=== PATIENT | male | born 2000 ===

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

== ENCOUNTER 2021-09-13 17:06 | Emergency (ER) | payer OTHER, SELFPAY ==
[2021-09-13 17:14] VITALS: BP 133/77; PULSE 76; RESP 18; TEMP 35.8; O2SAT 95; BMI 20.3
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
[2021-09-13 20:09] LABS: Syphilis Screen Nonreactive (Nonreactive)
[2021-09-14 10:07] LABS: CT PCR NOT DETECTED (Not Detect.); NG PCR NOT DETECTED (Not Detect.)
[2021-09-24 12:22] LABS: HSV 1 IgM IFA Negative (Negative); HSV 2 IgM IFA Negative (Negative)
== END 2021-09-13 19:43 | disposition home or self-care (01) ==
PROVIDERS: Emergency Provider Emergency Medicine; PCP Pediatrics
DX: Z20.2 Contact with and (suspected) exposure to infections with a predominantly sexual mode of transmission (principal)
CPT/HCPCS: 36415; 86695; 86696; 86780; 87491; 87591; 99282; 99283

== ENCOUNTER 2021-11-27 21:26 | Emergency (ER) | payer OTHER, SELFPAY ==
--- NOTE | ~2021-11-27 | XR_ITS ---
EXAMINATION: XR CHEST CLINICAL INFORMATION: Cough, malaise. COMPARISON: None TECHNIQUE: Frontal view of the chest was obtained. FINDINGS: The lungs are clear. The heart and mediastinal structures are unremarkable. Mild thoracolumbar dextroscoliosis. XR/XR chest 1V IMPRESSION: No acute cardiopulmonary process.
[2021-11-27 21:37] VITALS: BP 140/90; BP 141/86; PULSE 80; PULSE 96; RESP 18; TEMP 37.7; O2SAT 97; O2SAT 99; BMI 20.9
[2021-11-27 22:27] LABS: Influenza A PCR NEGATIVE (Negative); Influenza B PCR NEGATIVE (Negative); Resp Syncy Virus RNA Qual PCR NEGATIVE (Negative); SARS COV2 PCR INHOUSE POSITIVE (Negative)
[2021-11-27] MEDS: Ibuprofen 600 MG TABLET PO (23:00)
[2021-11-27] MEDS: Acetaminophen 325 MG TABLET 650 MG PO (23:00)
== END 2021-11-27 23:19 | disposition left against medical advice (07) ==
PROVIDERS: Emergency Provider Emergency Medicine
DX: R06.02 Shortness of breath (principal); J02.9 Acute pharyngitis, unspecified; Z20.822 Contact with and (suspected) exposure to COVID-19
CPT/HCPCS: 0241U; 71045; 99282; 99283

== ENCOUNTER 2023-09-06 23:01 | Emergency (ER) | payer OTHER, SELFPAY ==
[2023-09-06 23:15] VITALS: BP 147/90; PULSE 69; RESP 18; TEMP 36.6; O2SAT 97; BMI 22.3
[2023-09-06 23:32] LABS: MANUAL DIFF FLAG NO
[2023-09-06 23:33] LABS: Basophils Percent Auto 0.4 % (0-2); Eosinophils Percent Auto 0.1 % (0-4); Hematocrit 42.2 % (42.0-52.0); Hemoglobin 14.9 g/dl (14.0-18.0); Imm Gran Abs Auto 0.03 X10*3/uL (0.00-0.03); Imm Gran Pct Auto 0.3 % (0.0-0.4); Lymphocytes Absolute Auto 1.6 X10*3/uL (1.2-4.9); Lymphocytes Percent Auto 16.9 % (20-40); Mean Corpuscular HGB Conc 35.3 g/dl (31.0-36.0); Mean Corpuscular Hemoglobin 29.5 pg (27.0-33.0); Mean Corpuscular Volume 83.6 fL (80.0-98.0); Mean Platelet Volume 10.8 fL (9.4-12.4); Monocytes Absolute Auto 0.9 X10*3/uL (0.1-1.2); Monocytes Percent Auto 9.5 % (2-11); Neutrophils Absolute Auto 7.1 x10*3/uL (2.0-8.3); Neutrophils Percent Auto 72.8 % (45-73); Platelet Count 308 X10*3/uL (160-400); Red Blood Count 5.05 X10*6/uL (4.60-5.80); Red Cell Distribution Width 12.6 % (11.0-16.0); White Blood Count 9.7 X10*3/uL (4.8-10.8)
[2023-09-06 23:48] LABS: Alanine Aminotransferase 31 U/L (0-40); Albumin Level 5.1 g/dL (3.5-5.0); Alkaline Phosphatase 96 U/L (39-117); Anion Gap 14 (12-20); Aspartate Amino Transferase 23 U/L (5-37); Bilirubin Direct 0.2 mg/dL (0.0-0.5); Blood Urea Nitrogen 12 mg/dL (9-16); Calcium 9.9 mg/dL (8.4-10.2); Carbon Dioxide 26 mmol/L (22-29); Chloride 103 mmol/L (96-108); Creatinine Clr Calc Pharmacy 123.6; Estimated Glomerular Filt Rate > 60; Glucose Random 107 mg/dL (60-115); Lipase 20 U/L (8-78); Sodium 139 mmol/L (135-145); Total Protein 8.6 g/dL (6.5-8.0)
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
--- NOTE | 2023-09-07 01:27 | ED.ABDPAIN ---
HPI - Abdominal Pain General Chief Complaint: Abdominal Pain Stated Complaint: sharp abd pain and vomiting Time Seen by Provider: 09/07/23 01:20 Source: patient Mode of arrival: ambulatory Limitations: no limitations History of Present Illness ED Provider: Dr. Mackenzie Bentley HPI narrative: Patient comes to the emergency room complaining of chronic abdominal pain. Patient states that for several months he has experienced abdominal cramping intermittent, patient states that he has been having some diarrhea intermittently as well, no constipation. Patient denies fever chills, no blood in the stool. Earlier today, patient had 2 episodes of vomiting Related Data Previous Rx's ?Medication ?Instructions ?Recorded ondansetron HCl 4 mg tablet 4 mg PO Q8H PRN nausea and 10/07/20 (Zofran) vomiting #10 tabs doxycycline hyclate 150 mg tablet 100 mg (0.6667 x 150 mg) PO DAILY 09/13/21 #14 tabs hyoscyamine sulfate 0.125 mg tablet 0.125 mg PO QID PRN dyspepsia #14 09/07/23 tabs loperamide 2 mg capsule 2 mg PO Q4H PRN loose stool #14 09/07/23 caps ondansetron HCl 4 mg tablet 4 mg PO Q6H PRN nausea and 09/07/23 vomiting #10 tabs Allergies Allergy/AdvReac Type Severity Reaction Status Date / Time No Known Allergies Allergy Verified 09/06/23 23:17 Review of Systems Review of Systems Constitutional : No Weight loss, No Fever, No Chills, No Night Sweats, No Fatigue, No Malaise ENT/Mouth : No Hearing loss, No Ear Pain, No Nasal Congestion, No Sinus Pain, No Hoarseness, No sore throat, No Rhinorrhea, No Swallowing Difficulty Eyes: No Eye Pain, No Swelling, No Redness, No Foreign Body, No Discharge, No Vision Changes Cardiovascular : No Chest Pain, No SOB, No Dyspnea on Exertion, No Orthopnea, No Edema, No Palpitations Respiratory : No Cough, No Sputum, No Wheezing, No Smoke Exposure, No Dyspnea Gastrointestinal complaining of nausea and vomiting earlier today which self-resolved, complaining of couple episodes of diarrhea, and left lower quadrant Genitourinary : no irregular bleeding, No Dysuria, No Urinary Frequency, No Hematuria, No Urinary Incontinence, No Urgency, No Flank Pain, No Urinary Flow Changes, No Hesitancy Musculoskeletal : No joint pain, No Myalgias, No Joint Swelling Skin : No Skin Lesions, No rash Neuro : No Weakness, No Numbness, No Paresthesias, No Loss of Consciousness, No Dizziness, No Headache Psych : No Anxiety/Panic, No Depression, No SI/HI/AH/VH, No Social Issues, Heme/Lymph: No Bruising, No Bleeding,No Lymphadenopathy Endocrine : No Polyuria, No Polydipsia, No Temperature Intolerance [facility] Past Medical History Medical History No known health problems Social History Social History (System 11/28/22 @ 14:51 by Noni Kirkpatrick) Advance Directives: No Advance Directives Information Provided: No Do you have a plan to hurt others: No Plan Physical Exam ED Vital Signs: Vital Signs - 24 hr 09/06/23 23:15 Temperature 98 F Pulse Rate 69 Respiratory Rate 18 Blood Pressure 147/90 H Pulse Oximetry 97 Oxygen Delivery Method Room Air BMI result Body Mass Index 22.3 Const Other: Appearance: Alert. Oriented X3. No acute distress. Eyes: Pupils equal, round and reactive to light. ENT: Pharynx normal. Neck: Normal inspection. Neck supple. No lymph nodes noted. No crepitus CVS: Normal heart rate and rhythm. Pulses normal. Normal S1 and S2 Respiratory: No respiratory distress. Breath sounds normal. No Wheezing. No rales Abdomen: Soft and nontender. No rigidity. No distention. Skin: Skin warm and dry. Normal skin color. Normal skin turgor. Extremities: No lower extremity edema. No Lacerations. No Rash Neuro: Oriented X 3. No motor deficit. No sensory deficit. Moving all extremities. No slurred speech. CN 2 through 12 grossly intact Psych: calm, cooperative, normal affect Medical Decision Making Medical Decision Making MDM Narrative: -my interpretation of labs, normal hematology, normal chemistry, normal lipase and LFT -physical exam was unremarkable, no rebound no tenderness. -here in the emergency room patient has not vomited or had any diarrhea. -I discussed with the patient that given the length of his intermittent symptoms, he would benefit from being referred to Gastroenterology by his PCP. Patient states that he is waiting to be seen by a new PCP. -at this time, patient's vitals are normal, patient has no abdominal pain. Patient ready for discharge. - Differential Diagnosis Differential Diagnoses: The differential diagnosis associated with the presentation includes (IBS, Diverticulosis without diverticulitis, dyspepsia, viral syndrome) Lab Data MDM Lab Attestation statement: I reviewed the patient's lab results. 09/06/23 23:28 09/06/23 23:28 Labs: Lab Results 09/06/23 Range/Units 23:28 WBC 9.7 (4.8-10.8) X10*3/uL RBC 5.05 (4.60-5.80) X10*6/uL Hgb 14.9 (14.0-18.0) g/dl Hct 42.2 (42.0-52.0) % MCV 83.6 (80.0-98.0) fL MCH 29.5 (27.0-33.0) pg MCHC 35.3 (31.0-36.0) g/dl RDW 12.6 (11.0-16.0) % Plt Count 308 (160-400) X10*3/uL MPV 10.8 (9.4-12.4) fL Immature Gran % (Auto) 0.3 (0.0-0.4) % Neut % (Auto) 72.8 (45-73) % Lymph % (Auto) 16.9 L (20-40) % [place] % (Auto) 9.5 (2-11) % Eos % (Auto) 0.1 (0-4) % Baso % (Auto) 0.4 (0-2) % Lymph # (Auto) 1.6 (1.2-4.9) X10*3/uL [place] # (Auto) 0.9 (0.1-1.2) X10*3/uL Eos # (Auto) 0.0 (0.0-0.4) X10*3/uL Baso # (Auto) 0.0 (0.0-0.2) X10*3/uL Abs Immat Gran (auto) 0.03 (0.00-0.03) X10*3/uL Absolute Neuts (auto) 7.1 (2.0-8.3) x10*3/uL Absolute Nucleated RBC 0.000 (0.0-0.012) X10*3/uL Nucleated RBC % (auto) 0.0 (0.0-0.2) /100WBC Sodium 139 (135-145) mmol/L Potassium 4.0 (3.3-5.1) mmol/L Chloride 103 (96-108) mmol/L Carbon Dioxide 26 (22-29) mmol/L Anion Gap 14 (12-20) BUN 12 (9-16) mg/dL Creatinine 0.97 (0.5-1.4) mg/dL Estim Creat Clear Calc 123.6 Estimated GFR > 60 Random Glucose 107 (60-115) mg/dL Calcium 9.9 (8.4-10.2) mg/dL Total Bilirubin 1.0 (0.0-1.0) mg/dL Direct Bilirubin 0.2 (0.0-0.5) mg/dL AST 23 (5-37) U/L ALT 31 (0-40) U/L Alkaline Phosphatase 96 (39-117) U/L Total Protein 8.6 H (6.5-8.0) g/dL Albumin 5.1 H (3.5-5.0) g/dL Lipase 20 (8-78) U/L Discharge Plan Discharge Clinical Impression: Abdominal pain Patient Disposition: Home, Self-Care Instructions: Abdominal Pain (ED) Additional Instructions: Please follow-up with your primary care physician tomorrow. If you have any worsening or new symptoms, please return to the emergency room or call 911 Prescriptions: New hyoscyamine sulfate 0.125 mg tablet 0.125 mg PO QID PRN (Reason: dyspepsia) Qty: 14 0RF ondansetron HCl 4 mg tablet 4 mg PO Q6H PRN (Reason: nausea and vomiting) Qty: 10 0RF loperamide 2 mg capsule 2 mg PO Q4H PRN (Reason: loose stool) Qty: 14 0RF Rx Instructions: administer after each loose stool until symptoms controlled; do not exceed 8 mg per 24 hrs No Action ondansetron HCl [Zofran] 4 mg tablet 4 mg PO Q8H PRN (Reason: nausea and vomiting) Qty: 10 0RF doxycycline hyclate 150 mg tablet 100 mg PO DAILY Qty: 14 0RF Referrals: Wilmer Monsalve MD [Physician] - 09/08/23 Print Language: Serbian
[2023-09-07 01:30] VITALS: BP 133/80; PULSE 70; RESP 16; TEMP 36.6; O2SAT 98
[2023-09-07] MEDS: Acetaminophen 325 MG TABLET 650 MG PO (01:50)
[2023-09-07 01:55] VITALS: BP 133/80; PULSE 70; RESP 16; TEMP 36.6; O2SAT 98
== END 2023-09-07 02:00 | disposition home or self-care (01) ==
PROVIDERS: Emergency Provider Emergency Medicine
DX: R10.9 Unspecified abdominal pain (principal); R25.2 Cramp and spasm; Z79.899 Other long term (current) drug therapy
CPT/HCPCS: 36415; 80048; 80076; 83690; 85025; 99283; 99284

== ENCOUNTER 2023-11-30 14:03 | Outpatient (AMB) | payer OTHER, SELFPAY ==
--- NOTE | 2023-11-30 14:18 | A.OFFPC_ITS ---
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 He transferred from [facility]. Records transfer pending. The patient would like to discuss stomach symptoms that started a year ago or longer. Patient endorses episodes of abdominal pain that come and go. He has episodes every 2-3 weeks. He is not sure how long they last, but usually it is at least 24 hours. He says it is not worse after eating or after eating specific foods. Sometimes he is nauseous or vomits with the pain. Denies diarrhea and blood in his stools. Denies weight loss. No fevers or chills. No history of abdominal surgeries. Sometimes the pain is so bad he has to hold his stomach. He describes it as severe. It is aching and throbbing. He could not localize pain. Tylenol might help sometimes. Drinks socially on the weekends with friends. Does not see a correlation between alcohol consumption and onset of symptoms. Denies family history or Celiac, Crohns, UC, GI cancers. His father has some type of gastro issue for which he sees Dr. Mar, and the patient would like a referral to him. He went to the [place] in September for vacation. 3 days before leaving he developed nausea, vomiting, diarrhea and stomach pain. He could not really eat. He went to the emergency room and missed his flight. They prescribed medication, but he could not afford it. He has been to the emergency room for this pain in the past, but he has not had imaging. The patient also says he has trouble sleeping. Upon further discussion patient says that he does not try to go to sleep and stays on his phone all night. When this happens he tries to stay up throughout the day and then ends up falling asleep in the late afternoon. He also drinks caffeinated soda and says he has been eating a lot of candy throughout the day. He does not drink coffee. ROS: Constitutional: No unexplained weight loss, fever, chills or night sweats. Respiratory: No shortness of breath, cough or sputum production. Cardiovascular: No chest pain Gastrointestinal: see HPI. Genitourinary: No dysuria, hematuria, urinary frequency. Hematologic/Lymphatics: No bleeding or bruising. Skin: No rash or itching. Endocrine: No cold or heat intolerance. No polyuria or polydipsia. Psychiatric: Denies depression and anxiety. Physical exam: Constitutional: Alert, in no distress. Neck: Supple, Full range of motion. No lymphadenopathy. No palpable thyroid masses. Respiratory: Clear to auscultation. Cardiovascular: S1 S2 regular. No murmurs. Gastrointestinal: Abdomen soft, non-tender, non-distended. Normal bowel sounds. No palpable masses. No organomegaly. Skin: No rashes Extremities: Warm and well perfused. No clubbing, cyanosis or edema. Psychiatric: Normal mood and affect [facility] Medical History (Updated 11/30/23 @ 15:32 by JIMMIE Barrett) Sleep initiation dysfunction Nausea & vomiting Chronic abdominal pain No known health problems Social History (Updated 11/30/23 @ 14:22 by Nanette Betancourt [facility]) Housing: Apartment Alcohol intake: never Patient Tobacco Use Status: Never used Tobacco e-Cigarette/Vaping Use: Never Used Second Hand Smoke Exposure: No Substance Use Type: Marijuana service: No Current occupational status: unemployed Current occupational exposures/hazards: No Cognitive needs: No Hearing needs: No Vision needs: No Questionnaire PHQ-9 Over the last 2 weeks, how often have you been bothered by any of the following problems? 1. Little interest or pleasure in doing things: several days 2. Feeling down, depressed, or hopeless: several days 3. Trouble falling or staying asleep, or sleeping too much: nearly every day 4. Feeling tired or having little energy: nearly every day 5. Poor appetite or overeating: nearly every day 6. Feeling bad about yourself - or that you are a failure or have let yourself or your family down: not at all 7. Trouble concentrating on things, such as reading the newspaper or watching television: not at all 8. Moving or speaking so slowly that other people could have noticed. Or the opposite - being so fidgety or restless that you have been moving around a lot more than usual: not at all 9. Thoughts that you would be better off or of hurting yourself in some way: not at all Total score: 11 Depression Screening Interpretation: Positive Depression Screening Done: Yes 27520 - PHQ-9 Billing: Yes Source: Developed by Drs. Angel Smith, Roseanna Mueller, Gilberto Soliz and colleagues, with an educational celia from [employer]. Thrive Questionnaire Date Thrive assessed: 11/30/23 I am a: Patient What is your living situation today?: I have a steady place to live Within the past 12 months, did the food you bought not last and you didn't have the money to get more?: Never true Within the past 12 months, did you worry whether your food would run out before you got money to buy more?: Never true Do you have trouble paying for medicines?: No Do you have trouble getting transportation to medical appointments?: No Do you have trouble paying your heating and electricity bill?: No Do you have trouble taking care of your child, family member or friend?: No Do you have trouble with day-to-day activities such as bathing, preparing meals, shopping, managing finances, etc.?: No Are you currently unemployed and looking for a job?: No Are you interested in more education?: No Please select the resources that you would like help with: None Currently or been in a relationship where the following occur: No concerns reported THRIVE Score: 0 AUDIT C Alcohol Use Questionnaire (AUDIT-C) 1. How often do you have a drink containing alcohol?: 2-3 times a week 2. How many drinks containing alcohol do you have on a typical day when you are drinking?: 1 or 2 3. How often do you have six or more drinks on one occasion?: Never Total Score: 3 JOSELITO-7 AMB Questionnaire JOSELITO-7 Date JOSELITO - 7 assessed: 11/30/23 Feeling nervous, anxious, or on edge: 1 = Several days Not being able to stop or control worryin = Several days Worrying too much about different things: 2 = More than half the days Trouble relaxin = Several days Being so restless that it is hard to sit still: 1 = Several days Becoming easily annoyed or irritable: 3 = Nearly every day Feeling afraid as if something awful might happen: 0 = Not at all Total JOSELITO-7 score (0-4 normal; 5-9 mild; 10-14 moderate; 15-21 severe): 9 Source: Developed by Drs. Angel Smith, Roseanna Mueller, Gilberto Soliz and colleagues, with an educational celia from [employer]. JOSELITO-7 Assessment Billing JOSELITO-7 Assessment Tool: JOSELITO-7 Assessment 75098 Physical exam (Primary Care) Vital Signs: Last Vital Signs Temp 98.1 F 11/30/23 14:25 Pulse 71 11/30/23 14:25 Resp 12 11/30/23 14:25 BP 100/60 11/30/23 14:25 Pulse Ox 97 11/30/23 14:25 Oxygen Delivery Method Room Air 11/30/23 14:25 BMI result Body Mass Index 24.7 Tobacco/Smoking Status: Tobacco use Status Tobacco use date assessed 11/30/23 11/30/23 14:28 Patient Tobacco Use Status Never used Tobacco 11/30/23 14:28 e-Cigarette/Vaping Use Never Used 11/30/23 14:28 PHQ-9: PHQ-9 Score PHQ-9: Total score 11 11/30/23 14:28 Depression Screening Interpretation: Positive Thrive Assessment: Date of Thrive Assessment Date Thrive assessed 11/30/23 11/30/23 14:28 Currently or been in a relationship where the following occur: No concerns reported Coding Level of Care Code New Pt Level 4 (02965) Complex EM visit Add On G2211 Diagnoses Chronic abdominal pain R10.9; G89.29 Nausea and vomiting, unspecified vomiting type R11.2 Vomiting type: unspecified Sleep initiation dysfunction G47.00 Additional Codes JOSELITO-7 Assessment Billing - JOSELITO-7 Assessment Tool: JOSELITO-7 Assessment 52220 ([id number]) Assessment & Plan Assessment & Plan (1) Chronic abdominal pain: Code(s): R10.9 - Unspecified abdominal pain; G89.29 - Other chronic pain Category: Medical Plan: I ordered labs including screenings for H pylori and celiac disease. Check metabolic function, CBC for anemia, sed rate. Abdominal ultrasound ordered. Refer to Gastroenterology. Warning signs warranting ER evaluation reviewed. (2) Nausea & vomiting: Code(s): R11.2 - Nausea with vomiting, unspecified Category: Medical Qualifiers: Vomiting type: unspecified Qualified Code(s): R11.2 - Nausea with vomiting, unspecified (3) Sleep initiation dysfunction: Code(s): G47.00 - Insomnia, unspecified Category: Medical Plan: I reviewed sleep hygiene in detail with the patient. He is going to stopped drinking caffeine in the afternoon, start physical exercise during the day like walking his dog, and pick a reasonable bedtime and stay consistent with it and avoid any type of screen use around bedtime. Advised him to pick an activity like reading or listening to quiet music before anticipated bedtime. If he is unable to fall asleep after half an hour he can read again for 15 minutes and attempt to fall asleep again. He should avoid using his phone at night. Advised patient he can try melatonin 3-10 mg nightly initially to see if this helps. Plan Schedule physical exam. Sign release for medical records. Orders: Orders Complete Blood Count Auto Diff Today G89.29 - Other chronic pain, R10.9 - Unspecified abdominal pain, R11.2 - Nausea with vomiting, unspecified Comprehensive Met. Panel Today G89.29 - Other chronic pain, R10.9 - Unspecified abdominal pain, R11.2 - Nausea with vomiting, unspecified TSH reflex Free T4 Today G89.29 - Other chronic pain, R10.9 - Unspecified abdominal pain, R11.2 - Nausea with vomiting, unspecified Amylase Today G89.29 - Other chronic pain, R10.9 - Unspecified abdominal pain, R11.2 - Nausea with vomiting, unspecified Erythrocyte Sedimentation Rate Today G89.29 - Other chronic pain, R10.9 - Unspecified abdominal pain, R11.2 - Nausea with vomiting, unspecified Immunoglobulin A Today G89.29 - Other chronic pain, R10.9 - Unspecified abdominal pain, R11.2 - Nausea with vomiting, unspecified Transglutaminase Ab IgG Today G89. - Other chronic pain, R10.9 - Unspecified abdominal pain, R11.2 - Nausea with vomiting, unspecified US abdomen complete Today G89.29 - Other chronic pain, R10.9 - Unspecified abdominal pain, R11.2 - Nausea with vomiting, unspecified H pylori Ag Stool Today G89. - Other chronic pain, R10.9 - Unspecified abdominal pain, R11.2 - Nausea with vomiting, unspecified Lipase Today G89. - Other chronic pain, R10.9 - Unspecified abdominal pain, R11.2 - Nausea with vomiting, unspecified Endomysial IgA rflx Titer Today G89. - Other chronic pain, R10.9 - Unspecified abdominal pain, R11.2 - Nausea with vomiting, unspecified Referrals Gastroenterology Referral G. - Other chronic pain, R10.9 - Unspecified abdominal pain, R11.2 - Nausea with vomiting, unspecified Medications: Discontinued ondansetron HCl (Zofran) Discontinued Reason: Patient Completed Course 4 mg PO Q8H PRN 10 tabs 0RF nausea and vomiting doxycycline hyclate Discontinued Reason: Patient Completed Course 100 mg (0.6667 x 150 mg) PO DAILY 14 tabs 0RF loperamide administer after each loose stool until symptoms controlled; do not exceed 8 mg per 24 hrs Discontinued Reason: Patient Completed Course 2 mg PO Q4H PRN 14 caps 0RF loose stool hyoscyamine sulfate Discontinued Reason: Patient Completed Course 0.125 mg PO QID PRN 14 tabs 0RF dyspepsia ondansetron HCl Discontinued Reason: Patient Completed Course 4 mg PO Q6H PRN 10 tabs 0RF nausea and vomiting
[2023-11-30 14:25] VITALS: BP 100/60; PULSE 71; RESP 12; TEMP 36.7; O2SAT 97; BMI 24.7
== END 2023-11-30 15:09 | disposition home or self-care (01) ==
PROVIDERS: Visit Provider Physician Assistant Medical
DX: R10.9 Unspecified abdominal pain (principal); G89.29 Other chronic pain; R11.2 Nausea with vomiting, unspecified; G47.00 Insomnia, unspecified

== ENCOUNTER → 2023-11-30 14:03 | Outpatient (BNVA) | payer SELFPAY | PROVIDERS: Visit Provider Physician Assistant Medical ==

== ENCOUNTER 2023-11-30 15:27 | Outpatient (REF) | payer SELFPAY ==
[2023-11-30 18:00] LABS: MANUAL DIFF FLAG NO
[2023-11-30 18:21] LABS: Basophils Absolute Auto 0.1 X10*3/uL (0.0-0.2); Eosinophils Absolute Auto 0.2 X10*3/uL (0.0-0.4); Eosinophils Percent Auto 3.4 % (0-4); Hematocrit 38.5 % (42.0-52.0); Hemoglobin 12.9 g/dl (14.0-18.0); Imm Gran Abs Auto 0.03 X10*3/uL (0.00-0.03); Imm Gran Pct Auto 0.4 % (0.0-0.4); Lymphocytes Absolute Auto 2.6 X10*3/uL (1.2-4.9); Lymphocytes Percent Auto 37.6 % (20-40); Mean Corpuscular HGB Conc 33.5 g/dl (31.0-36.0); Mean Corpuscular Hemoglobin 29.5 pg (27.0-33.0); Mean Corpuscular Volume 88.1 fL (80.0-98.0); Mean Platelet Volume 11.7 fL (9.4-12.4); Monocytes Absolute Auto 0.8 X10*3/uL (0.1-1.2); Monocytes Percent Auto 11.7 % (2-11); Neutrophils Absolute Auto 3.1 x10*3/uL (2.0-8.3); Neutrophils Percent Auto 45.9 % (45-73); Platelet Count 266 X10*3/uL (160-400); Red Blood Count 4.37 X10*6/uL (4.60-5.80); Red Cell Distribution Width 12.7 % (11.0-16.0); White Blood Count 6.8 X10*3/uL (4.8-10.8)
[2023-11-30 18:56] LABS: Alanine Aminotransferase 11 U/L (0-40); Albumin Level 4.5 g/dL (3.5-5.0); Alkaline Phosphatase 76 U/L (39-117); Amylase 104 U/L (28-100); Anion Gap 13 (12-20); Aspartate Amino Transferase 14 U/L (5-37); Bilirubin Total 0.3 mg/dL (0.0-1.0); Blood Urea Nitrogen 16 mg/dL (9-16); Calcium 9.1 mg/dL (8.4-10.2); Carbon Dioxide 28 mmol/L (22-29); Chloride 103 mmol/L (96-108); Estimated Glomerular Filt Rate > 60; Glucose Random 99 mg/dL (60-115); Lipase 110 U/L (8-78); Potassium 3.8 mmol/L (3.3-5.1); Sodium 140 mmol/L (135-145); Total Protein 7.4 g/dL (6.5-8.0)
[2023-11-30 19:11] LABS: TSH reflex Free T4 2.04 uIU/mL (0.32-4.0)
[2023-11-30 20:18] LABS: Erythrocyte Sedimentation Rate 4 MM/HR (0-15)
[2023-12-01 09:04] LABS: Immunoglobulin A 186 mg/dL (47-310)
[2023-12-03 14:08] LABS: Transglutaminase Ab IgG <1.0 U/mL
[2023-12-03 22:34] LABS: Endomysial IgA Antibody Negative (Negative)
== END 2023-11-30 15:28 | disposition home or self-care (01) ==
LOC: HO.WFDLDS 15:27
PROVIDERS: Visit Provider Physician Assistant Medical
DX: R10.9 Unspecified abdominal pain (principal); G89.29 Other chronic pain; R11.2 Nausea with vomiting, unspecified; G47.00 Insomnia, unspecified
CPT/HCPCS: 36415; 80053; 82150; 82784; 83690; 84443; 85025; 85652; 86231; 86364; 96127; 99202

== ENCOUNTER 2024-01-22 10:55 | Emergency (ER) | payer OTHER, SELFPAY ==
--- NOTE | 2024-01-22 12:35 | ED_ITS ---
HPI - Nausea/Vomiting/Diarrhea General Chief complaint: Abdominal Pain Stated complaint: Stomach Pain Vomiting Related Data Previous Rx's ?Medication ?Instructions ?Recorded barium sulfate 2.1 % (w/v), 2.0 % See Rx Instructions .Route 12/04/23 (w/w) oral suspension .COMPLEX #900 mL omeprazole 20 mg capsule,delayed 20 mg PO DAILY #90 caps 12/10/23 release Allergies Allergy/AdvReac Type Severity Reaction Status Date / Time No Known Allergies Allergy Verified 01/22/24 12:37 [facility] Past Medical History Medical History (Updated 01/27/24 @ 12:08 by JIMMIE Barbosa) Elevated pancreatic enzyme Mild anemia Sleep initiation dysfunction Nausea & vomiting Chronic abdominal pain No known health problems Social History Social History (Updated 11/30/23 @ 14:22 by Nanette Betancourt [facility]) Housing: Apartment Alcohol intake: never Patient Tobacco Use Status: Never used Tobacco e-Cigarette/Vaping Use: Never Used Second Hand Smoke Exposure: No Substance Use Type: Marijuana Advance Directives: No Advance Directives Information Provided: No Do you have a plan to hurt others: No Plan service: No Current occupational status: unemployed Current occupational exposures/hazards: No Cognitive needs: No Hearing needs: No Vision needs: No Physical Exam 2 Vital Signs: Vital Signs: Last Vital Signs Temp 99.6 F 01/22/24 12:36 Pulse 76 01/22/24 12:36 Resp 16 01/22/24 12:36 BP 138/95 H 01/22/24 12:36 Pulse Ox 99 01/22/24 12:36 O2 Del Method Room Air 01/22/24 12:36 BMI result Body Mass Index 21.1 Course Course Course Narrative: This is an RME: Additional HPI, ROS, PE not included below will be deferred to primary provider. RME assessment and note performed by: Iwona Quiroga PA-C This is a 61-qhtg-sba-male who presents to the ER with complaints of nausea, vomiting and diarrhea x 3-4 days. smokes marijuana. Reports generalized abdominal pain. Pt was called with no responded x 2, was in and out of the waiting room. Advised that he needs to stay in the [facility]. Plan: Labs, Viral swabs, ua, further ER eval needed 1321 - Patient reported back to the triage room, he admits to using 10 PERC 10mg per day. Did not use any yesterday. He is unsure if this is why he is feeling so unwell. I discussed with him that this is likely withdrawal. He is willing to speak to the care team to discuss this. 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 Care team consult placed. Reevaluation(s) Reevaluation #1: Patient left without completing treatment. Medications Administered Discontinued Medications Generic Name Dose Route Start Last Admin Trade Name Fremerle PRN Reason Stop Dose Admin Ondansetron HCl 4 mg 01/22/24 12:36 01/22/24 12:41 Ondansetron Odt 4 Mg Tab.Rapdis TRANSLINGU 01/22/24 12:37 4 mg ONCE ONE Administration Medical Decision Making Lab Data 01/22/24 12:48 01/22/24 12:48 Labs: Lab Results 01/22/24 Range/Units 12:48 WBC 10.5 (4.8-10.8) X10*3/uL RBC 5.01 (4.60-5.80) X10*6/uL Hgb 14.5 (14.0-18.0) g/dl Hct 42.9 (42.0-52.0) % MCV 85.6 (80.0-98.0) fL MCH 28.9 (27.0-33.0) pg MCHC 33.8 (31.0-36.0) g/dl RDW 12.6 (11.0-16.0) % Plt Count 303 (160-400) X10*3/uL MPV 10.8 (9.4-12.4) fL Immature Gran % (Auto) 0.3 (0.0-0.4) % Neut % (Auto) 81.2 H (45-73) % Lymph % (Auto) 10.6 L (20-40) % Wythe % (Auto) 7.4 (2-11) % Eos % (Auto) 0.0 (0-4) % Baso % (Auto) 0.5 (0-2) % Lymph # (Auto) 1.1 L (1.2-4.9) X10*3/uL Wythe # (Auto) 0.8 (0.1-1.2) X10*3/uL Eos # (Auto) 0.0 (0.0-0.4) X10*3/uL Baso # (Auto) 0.1 (0.0-0.2) X10*3/uL Abs Immat Gran (auto) 0.03 (0.00-0.03) X10*3/uL Absolute Neuts (auto) 8.5 H (2.0-8.3) x10*3/uL Absolute Nucleated RBC 0.000 (0.0-0.012) X10*3/uL Nucleated RBC % (auto) 0.0 (0.0-0.2) /100WBC Sodium 144 (135-145) mmol/L Potassium 3.4 (3.3-5.1) mmol/L Chloride 105 (96-108) mmol/L Carbon Dioxide 22 (22-29) mmol/L Anion Gap 20 (12-20) BUN 12 (9-16) mg/dL Creatinine 1.08 (0.5-1.4) mg/dL Estim Creat Clear Calc 92.9 Estimated GFR > 60 Random Glucose 114 (60-115) mg/dL Calcium 10.4 H D (8.4-10.2) mg/dL Magnesium 2.0 (1.6-2.6) mg/dL Total Bilirubin 1.0 (0.0-1.0) mg/dL Direct Bilirubin 0.3 (0.0-0.5) mg/dL AST 23 (5-37) U/L ALT 17 (0-40) U/L Alkaline Phosphatase 81 (39-117) U/L Total Protein 8.3 H (6.5-8.0) g/dL Albumin 5.1 H (3.5-5.0) g/dL Lipase 11 (8-78) U/L Influenza Type A (PCR) Cancelled Influenza Type B (PCR) Cancelled RSV RNA Qual (PCR) Cancelled SARS-CoV-2 RNA (RT-PCR) Cancelled Discharge Plan Discharge Clinical Impression: Abdominal pain Patient Disposition: Left W/O Completing Treatment Prescriptions: No Action barium sulfate 2.1 % (w/v), 2.0 % (w/w) suspension See Rx Instructions .Route .COMPLEX Qty: 900 0RF Rx Instructions: Follow instructions per radiology. omeprazole 20 mg capsule,delayed release(DR/EC) 20 mg PO DAILY Qty: 90 0RF Discharge Date/Time: 01/22/24 20:52
[2024-01-22 12:36] VITALS: BP 138/95; PULSE 76; RESP 16; TEMP 37.6; O2SAT 99; BMI 21.1
[2024-01-22] MEDS: Ondansetron ODT 4 MG TAB.RAPDIS TRANSLINGU (12:41)
[2024-01-22 12:52] LABS: MANUAL DIFF FLAG NO
[2024-01-22 12:53] LABS: Basophils Absolute Auto 0.1 X10*3/uL (0.0-0.2); Basophils Percent Auto 0.5 % (0-2); Hematocrit 42.9 % (42.0-52.0); Hemoglobin 14.5 g/dl (14.0-18.0); Imm Gran Abs Auto 0.03 X10*3/uL (0.00-0.03); Imm Gran Pct Auto 0.3 % (0.0-0.4); Lymphocytes Absolute Auto 1.1 X10*3/uL (1.2-4.9); Lymphocytes Percent Auto 10.6 % (20-40); Mean Corpuscular HGB Conc 33.8 g/dl (31.0-36.0); Mean Corpuscular Hemoglobin 28.9 pg (27.0-33.0); Mean Corpuscular Volume 85.6 fL (80.0-98.0); Mean Platelet Volume 10.8 fL (9.4-12.4); Monocytes Absolute Auto 0.8 X10*3/uL (0.1-1.2); Monocytes Percent Auto 7.4 % (2-11); Neutrophils Absolute Auto 8.5 x10*3/uL (2.0-8.3); Neutrophils Percent Auto 81.2 % (45-73); Platelet Count 303 X10*3/uL (160-400); Red Blood Count 5.01 X10*6/uL (4.60-5.80); Red Cell Distribution Width 12.6 % (11.0-16.0); White Blood Count 10.5 X10*3/uL (4.8-10.8)
[2024-01-22 13:10] LABS: Alanine Aminotransferase 17 U/L (0-40); Albumin Level 5.1 g/dL (3.5-5.0); Alkaline Phosphatase 81 U/L (39-117); Anion Gap 20 (12-20); Aspartate Amino Transferase 23 U/L (5-37); Bilirubin Direct 0.3 mg/dL (0.0-0.5); Blood Urea Nitrogen 12 mg/dL (9-16); Calcium 10.4 mg/dL (8.4-10.2); Carbon Dioxide 22 mmol/L (22-29); Chloride 105 mmol/L (96-108); Creatinine Clr Calc Pharmacy 92.9; Estimated Glomerular Filt Rate > 60; Glucose Random 114 mg/dL (60-115); Lipase 11 U/L (8-78); Potassium 3.4 mmol/L (3.3-5.1); Sodium 144 mmol/L (135-145); Total Protein 8.3 g/dL (6.5-8.0)
== END 2024-01-22 20:52 | disposition left against medical advice (07) ==
PROVIDERS: Physician Assistant Medical; Emergency Provider Emergency Medicine
DX: R11.2 Nausea with vomiting, unspecified (principal); R10.2 Pelvic and perineal pain; Z79.899 Other long term (current) drug therapy
CPT/HCPCS: 36415; 80048; 80076; 83690; 83735; 85025; 99281; 99282

== ENCOUNTER 2024-02-03 | Outpatient (REF) | payer OTHER, SELFPAY ==
--- NOTE | ~2024-02-03 | CT_ITS ---
EXAMINATION: CT ABDOMEN AND PELVIS WITH CONTRAST CLINICAL INFORMATION: Abdominal pain COMPARISON: None available. TECHNIQUE: Multidetector volumetric images were obtained from the superior aspect of the liver through the pubic symphysis following administration 85 mL of Omnipaque 350 intravenous contrast. Sagittal and coronal reformatted images were obtained on the technologist's workstation. Oral contrast: No This CT examination was performed using dose optimization techniques as appropriate, variously including the following: *Automated exposure control *Adjustment of mA and/or kV according to patient size (this includes techniques or standardized protocols for targeted exams where dose is matched to indication/reason for exam; i.e. extremities or head) *Use of iterative reconstruction technique DLP: 320 mGy-cm FINDINGS: LUNG BASES: The visualized lung bases are unremarkable. LIVER, GALLBLADDER, AND BILIARY TREE: The liver is normal in size, shape, and attenuation. No focal hepatic lesion or biliary ductal dilatation is present. The gallbladder is unremarkable with no evidence of radiopaque gallstones, gallbladder wall thickening, or obvious pericholecystic inflammatory changes. PANCREAS: Unremarkable. SPLEEN: Unremarkable. ADRENAL GLANDS: Calcifications of the right adrenal gland. The left adrenal gland is normal. KIDNEYS AND URETERS: The kidneys are normal in size, shape, and attenuation. No hydronephrosis, hydroureter, or calculi seen. No perinephric stranding. BLADDER: Unremarkable. GASTROINTESTINAL TRACT: The small and large bowel are unremarkable. The appendix is unremarkable. ABDOMINAL WALL: No significant hernia is appreciated. LYMPH NODES: Normal. VASCULAR: Unremarkable. PELVIC VISCERA: Unremarkable. OSSEOUS STRUCTURES: Unremarkable. CT/CT abdomen pelvis w IV con IMPRESSION: No significant abnormality. Fleischner guidelines were followed. Electronically signed by: Loyda Chirinos MD 02/03/2024 07:09 PM [facility]
[2024-02-03] MEDS: iohexoL 350 MG/ML 100 ML INFUS..BTL 85 ML IV (14:07)
[2024-02-03] MEDS: Barium Sulfate Oral (Berry) 450 ML ORAL.SUSP 900 ML PO (14:07)
== END 2024-02-03 00:01 | disposition home or self-care (01) ==
LOC: HO.CT
PROVIDERS: PCP Physician Assistant Medical; Visit Provider Physician Assistant Medical
DX: R10.9 Unspecified abdominal pain (principal); G89.29 Other chronic pain; R11.2 Nausea with vomiting, unspecified; D64.9 Anemia, unspecified; R74.8 Abnormal levels of other serum enzymes
CPT/HCPCS: 74177; Q9967

== ENCOUNTER 2024-02-04 16:22 | Outpatient (AMB) | payer OTHER, SELFPAY ==
--- NOTE | 2024-02-04 16:26 | MHC.PC.OV ---
Vital Signs 02/04/24 16:28 Height 5 ft 7 in Weight 161 lb 6 oz BMI 25.3 BP 106/62 Blood Pressure Location Lt brachial Position Sitting Pulse 76 Pulse Source Pulse Oximeter Pulse Oximetry (%) 96 Oxygen Delivery Method Room Air Intake Visit Reasons: Annual Exam Intake Note: Physical Scrap Baller Required: No Allergies No Known Allergies Allergy (Verified 02/04/24 16:26) Tobacco use date assessed: 11/30/23 Dental Screening Dental Screen Date: 11/30/23 HPI HPI Comments History of Present Illness Details 23-year-old male presents for physical exam. Declines all recommended vaccinations. Dental UTD He just rescheduled an eye exam. Agreeable to screening for STIs including HIV testing. Patient says he did cut back on some alcohol, but he is still drinking. It appears pancreatic enzyme normalized. Anemia resolved. CT scan of abdomen and pelvis normal. Gastroenterology contacted him, but he did not schedule an appointment. Continues to smoke marijuana. After the patient left I was reviewing his chart, and he was seen 01/22/2024 for GI symptoms at the ER. He reported to triage that he has been abusing Percocet for years and developed tolerance. ROS: Constitutional: No unexplained weight loss, fever, chills, or night sweats. +fatigue Eyes: No vision changes, blurry vision, double vision, eye pain, eye redness, eye discharge. ENT: No hearing loss, sneezing, congestion, runny nose or sore throat. Respiratory: No shortness of breath, cough or sputum production. Cardiovascular: No chest pain, chest pressure or chest discomfort. No palpitations or pedal edema. Gastrointestinal: He still endorses episodes of nausea and abdominal pain, but it has improved. Denies vomiting. Denies diarrhea. Denies blood in stool. Genitourinary: No dysuria, hematuria, urinary frequency. Denies testicular masses, pain, swelling. Neurologic: No headache, dizziness, syncope, unilateral weakness, ataxia, numbness or tingling in the extremities. Musculoskeletal: No muscle pain, back pain, joint pain or swelling. Hematologic/Lymphatics: No bleeding or bruising. No painful lymph nodes. Skin: No rash or itching. Endocrine: No cold or heat intolerance. No polyuria or polydipsia. Psychiatric: Reviewed PHQ-9 with patient. He denies depression and anxiety. Physical exam: Constitutional: Alert, in no distress. Head: Normocephalic. Eyes: Pupils are equal, round and reactive to light. Extraocular muscles intact. Ear, Nose and Throat: Canals clear. TMs normal. Normal nasal mucosa. No nasal discharge. No oral lesions. Neck: Supple, Full range of motion. No lymphadenopathy. No palpable thyroid masses. Respiratory: Clear to auscultation. Cardiovascular: S1 S2 regular. No murmurs Gastrointestinal: Abdomen soft, non-tender, non-distended. Normal bowel sounds. No palpable masses. Genitourinary: Patient deferred. Neurologic: No focal neurological deficits. Symmetric patellar reflexes. Moves all extremities spontaneously. Sensation intact bilaterally. Skin: No rashes or lesions. Musculoskeletal: No gross deformities. Normal range of motion. Extremities: Warm and well perfused. No clubbing, cyanosis or edema. 3+ peripheral pulses bilaterally. Psychiatric: Normal mood and affect [facility] Medical History (Updated 02/04/24 @ 17:00 by JIMMIE Barrett) Routine physical examination Elevated pancreatic enzyme Mild anemia Sleep initiation dysfunction Nausea & vomiting Chronic abdominal pain No known health problems Social History (Updated 02/04/24 @ 16:27 by Maria Teresa Quijano CMA) Housing: Apartment Alcohol intake: current Patient Tobacco Use Status: Never used Tobacco e-Cigarette/Vaping Use: Never Used Second Hand Smoke Exposure: No Substance Use Type: Marijuana service: No Current occupational status: unemployed Current occupational exposures/hazards: No Cognitive needs: No Hearing needs: No Vision needs: No Questionnaire PHQ-9 Over the last 2 weeks, how often have you been bothered by any of the following problems? 1. Little interest or pleasure in doing things: more than half the days 2. Feeling down, depressed, or hopeless: not at all 3. Trouble falling or staying asleep, or sleeping too much: nearly every day 4. Feeling tired or having little energy: nearly every day 5. Poor appetite or overeating: several days 6. Feeling bad about yourself - or that you are a failure or have let yourself or your family down: not at all 7. Trouble concentrating on things, such as reading the newspaper or watching television: not at all 8. Moving or speaking so slowly that other people could have noticed. Or the opposite - being so fidgety or restless that you have been moving around a lot more than usual: not at all 9. Thoughts that you would be better off or of hurting yourself in some way: not at all Total score: 9 Source: Developed by Drs. Angel Smith, Roseanna Mueller, Gilberto Soliz and colleagues, with an educational celia from [employer]. Thrive Questionnaire Date Thrive assessed: 11/30/23 I am a: Patient What is your living situation today?: I have a steady place to live Within the past 12 months, did the food you bought not last and you didn't have the money to get more?: Never true Within the past 12 months, did you worry whether your food would run out before you got money to buy more?: Never true Do you have trouble paying for medicines?: No Do you have trouble getting transportation to medical appointments?: No Do you have trouble paying your heating and electricity bill?: No Do you have trouble taking care of your child, family member or friend?: No Do you have trouble with day-to-day activities such as bathing, preparing meals, shopping, managing finances, etc.?: No Are you currently unemployed and looking for a job?: No Are you interested in more education?: No Please select the resources that you would like help with: None Currently or been in a relationship where the following occur: No concerns reported THRIVE Score: 0 AUDIT C Alcohol Use Questionnaire (AUDIT-C) 1. How often do you have a drink containing alcohol?: 2-4 times a month Total Score: 2 JOSELITO-7 AMB Questionnaire JOSELITO-7 Date JOSELITO - 7 assessed: 11/30/23 Feeling nervous, anxious, or on edge: 0 = Not at all Not being able to stop or control worryin = Not at all Worrying too much about different things: 0 = Not at all Trouble relaxin = Not at all Being so restless that it is hard to sit still: 0 = Not at all Becoming easily annoyed or irritable: 3 = Nearly every day Feeling afraid as if something awful might happen: 0 = Not at all Total JOSELITO-7 score (0-4 normal; 5-9 mild; 10-14 moderate; 15-21 severe): 3 Source: Developed by Roseanna Bang, Gilberto Soliz and colleagues, with an educational celia from [employer]. Physical exam (Primary Care) Vital Signs: Last Vital Signs Pulse 76 02/04/24 16:28 BP 106/62 02/04/24 16:28 Pulse Ox 96 02/04/24 16:28 Oxygen Delivery Method Room Air 02/04/24 16:28 BMI result Body Mass Index 25.3 Tobacco/Smoking Status: Tobacco use Status Tobacco use date assessed 11/30/23 02/04/24 16:29 Patient Tobacco Use Status Never used Tobacco 02/04/24 16:29 e-Cigarette/Vaping Use Never Used 02/04/24 16:29 PHQ-9: PHQ-9 Score PHQ-9: Total score 9 02/04/24 16:29 Thrive Assessment: Date of Thrive Assessment Date Thrive assessed 11/30/23 02/04/24 16:29 Currently or been in a relationship where the following occur: No concerns reported Coding Level of Care Code Est Pt Level 3 (73825) Est Pt Prev Care 18-39y(88899) Diagnoses Routine physical examination Z00.00 Nausea and vomiting, unspecified vomiting type R11.2 Vomiting type: unspecified Chronic abdominal pain R10.9; G89.29 Assessment & Plan Assessment & Plan (1) Routine physical examination: Code(s): Z00.00 - Encounter for general adult medical examination without abnormal findings Category: Medical (2) Nausea & vomiting: Code(s): R11.2 - Nausea with vomiting, unspecified Category: Medical Qualifiers: Vomiting type: unspecified Qualified Code(s): R11.2 - Nausea with vomiting, unspecified (3) Chronic abdominal pain: Code(s): R10.9 - Unspecified abdominal pain; G89.29 - Other chronic pain Category: Medical Plan Patient is seen today for a routine physical. As part of this visit we reviewed the following issues, which are considered and essential part of preventative health in this age group: - Blood pressure screening - Cholesterol screening - Nutritional and exercise counseling - Counseling of injury prevention including fire prevention, smoke alarms and seat belt usage - Screening for depression - Prevention of and/or testing for infectious diseases - Education about skin cancer - Recommendations about immunizations - Recommendation of an eye exam - Screening for substance abuse - I will reach back out to the patient for discussion about opioid abuse reported at recent ED visit. - Genetic cancer risk screening The patient never started omeprazole. I asked him to start taking this medication. We again discussed alcohol consumption, marijuana use and diet are likely contributing to his symptoms. Recent CT scan normal. He has cut back somewhat on alcohol and sugar. I gave him the number and asked him to call them back to schedule the consult. Sent Zofran to take as needed for nausea/vomiting. Patient says he has a history of high cholesterol. I will check fasting lipid profile. Orders: Orders Lipid Panel Today E78.5 - Hyperlipidemia, unspecified HIV Ab/Ag Today Z20.2 - Contact with and (suspected) exposure to infections with a predominantly sexual mode of transmission Syphilis Screen Today Z20.2 - Contact with and (suspected) exposure to infections with a predominantly sexual mode of transmission Hepatitis C Antibody Today Z20.2 - Contact with and (suspected) exposure to infections with a predominantly sexual mode of transmission CT NG by PCR Today Z20.2 - Contact with and (suspected) exposure to infections with a predominantly sexual mode of transmission Medications: New ondansetron 4 mg PO Q8H PRN 30 tabs 0RF nausea and vomiting Refilled omeprazole 20 mg PO DAILY 90 caps 0RF Patient Instructions: Your record number is [id number] Return to lab (fast for 10-12 hours, drinking water is okay) to have additional blood tests. Please call gastro to schedule your consult. STart omeprazole 20 mg every morning. You can take Zofran 4 mg every 8 hours as needed for nausea/vomiting. The CAT scan was normal. Your pancreatic enzyme and your blood count (previous red blood cells low) are normal now.
[2024-02-04 16:28] VITALS: BP 106/62; PULSE 76; O2SAT 96; BMI 25.3
== END 2024-02-04 16:54 | disposition home or self-care (01) ==
PROVIDERS: Visit Provider Physician Assistant Medical
DX: Z00.00 Encounter for general adult medical examination without abnormal findings (principal); R11.2 Nausea with vomiting, unspecified; R10.9 Unspecified abdominal pain; G89.29 Other chronic pain

== ENCOUNTER → 2024-02-04 16:22 | Outpatient (BNVA) | payer OTHER, SELFPAY | PROVIDERS: Visit Provider Physician Assistant Medical | DX: Z00.00 Encounter for general adult medical examination without abnormal findings (principal); R11.2 Nausea with vomiting, unspecified; G89.29 Other chronic pain; R10.9 Unspecified abdominal pain | CPT/HCPCS: 96127; 99212; 99395 ==

== ENCOUNTER 2024-07-09 05:52 | Emergency (ER) | payer OTHER, SELFPAY ==
[2024-07-09 06:02] VITALS: BP 150/81; PULSE 106; RESP 20; TEMP 36.4; O2SAT 96; BMI 23.7
--- NOTE | 2024-07-09 06:19 | PC.NURSE ---
pt reports he is feeling better, thinks he had a panic attack after taking pill. would like to go home. MD at bedside
[2024-07-09] MEDS: Naloxone HCl Nasal TAKE HOME 4 MG SPRAY 8 MG NOSTRILALT (06:27)
[2024-07-09 06:29] VITALS: BP 150/81; PULSE 106; RESP 20; TEMP 36.4; O2SAT 96
== END 2024-07-09 06:29 | disposition home or self-care (01) ==
PROVIDERS: Emergency Provider Internal Medicine
DX: F41.0 Panic disorder [episodic paroxysmal anxiety] (principal)
CPT/HCPCS: 99281; 99282; 99283